=== PATIENT | male | born 1970 | race African-American/Black ===

== ENCOUNTER 2017-01-23 03:26 | Emergency (ER) | payer SELFPAY ==
[~2017-01-23] VITALS: Ht 180.3 cm; Wt 113.0 kg
[~2017-01-23 03:26] MED LIST: IBUP800T23 PO
[2017-01-23] MEDS ORDERED: HYDR-3533 PO (05:17)
[2017-01-23] MEDS ORDERED: IBUP800T23 PO (05:17)
[2017-01-23] MEDS ORDERED: AUGM875T PO (05:17)
[2017-01-23] MEDS ORDERED: AMOXICILLIN/CLAVULANATE K 875 MG TAB PO ONE (05:30)
[2017-01-23] MEDS ORDERED: ACETAMINOPHEN/HYDROcodone 325 MG/5 MG TAB PO ONE (05:30)
--- NOTE | 2017-01-23 05:44 | PD ---
HPI Chief Complaint: Bite or Sting Time Seen by Provider: 05:26 Travel History International Travel<30 days: No Contact w/Intl Traveler<30days: No Traveled to known affect area: No History of Present Illness HPI 46-year-old black male presents to emergency department for evaluation of a dog bite. The patient states that he was walking home from the bar with his when a dog in the neighborhood came through the gait in the fence. The patient states that the dog bit him in his right lower leg. He then proceeded to punch the dog in the head. He sustained lacerations to his right hand and right lower leg. The patient states that this is a known dog and neighborhood. The patient denies any numbness or tingling. He complaints of pain. No other injuries. Up-to-date with immunizations. PFSH Past Medical History Medical History: Denies Significant Hx Diminished Hearing: No Tetanus Vaccination: < 5 Years Past Surgical History Surgical History: No Previous Surgery Social History Alcohol Use: Yes (daily) Tobacco Use: Yes (occ) Substance Use: Yes (marijuana) Allergies-Medications (Allergen,Severity, Reaction): Coded Allergies: No Known Allergies (Verified , 01/23/17) Reported Meds & Prescriptions Reported Meds & Active Scripts Active Ibuprofen 800 Mg Tab 800 Mg PO Q8H PRN Lortab (Hydrocodone-Acetaminophen) 5-325 Mg Tab 1 Tab PO Q8HR PRN Augmentin (Amoxicillin-Clavulanate) 875-125 mg Tab 875 Mg PO BID not for use in CrCl <30 ml/min. Review of Systems Except as stated in HPI: all other systems reviewed are Neg Physical Exam Narrative GENERAL: Well-developed, well-nourished in no apparent distress. Nontoxic appearing. HEAD: Normocephalic, atraumatic. EYES: Pupils equal round and reactive. Extraocular motions intact. No scleral icterus. No injection or drainage. ENT: Nose clear. Throat without erythema, tonsillar hypertrophy or exudate. Uvula midline. Airway patent. NECK: Trachea midline. Supple, nontender, moves head freely. No central bony tenderness or spasm. CARDIOVASCULAR: Regular rate and rhythm without murmurs, gallops, or rubs. RESPIRATORY: Clear to auscultation. Breath sounds equal bilaterally. No wheezes , rales, or rhonchi. GASTROINTESTINAL: Abdomen soft, non-tender, nondistended. No hepato-splenomegaly , or palpable masses. No guarding. EXTREMITIES: No clubbing, cyanosis, or edema. No joint tenderness. BACK: Nontender without deformity. No flank tenderness. NEUROLOGICAL: Awake, alert and oriented x 3 .Cranial nerves grossly intact. Motor and sensory grossly within normal limits. Normal speech. Skin: Examination the right hand reveals a laceration of the thenar eminence measuring 2.5 cm. This is more superficial. There is also a puncture wound just lateral to it. There is no obvious deep injury. Patient is neurovascularly intact. Sutures are not indicated. The patient has a 7 cm laceration to his right lower leg lateral aspect. Wound goes into the subcutaneous tissues but no foreign body or deep structure injury. Neurovascular intact. Lastly there is a caring flap laceration measuring 2.5 cm to the posterior mid calf. This goes just into subcutaneous tissues. No foreign body or deep injury. Data Data Orders Amoxicil-Clavulanate (Augmentin) (01/23/17 05:30) Acetamin-Hydrocod 325-5 Mg ([place] 5-325 (01/23/17 05:30) MDM Medical Decision Making Medical Screen Exam Complete: Yes Emergency Medical Condition: Yes Medical Record Reviewed: Yes Differential Diagnosis MDM: High Differential diagnoses: Fracture, sprain, strain, dislocation, contusion, neurovascular injury, dog bite Narrative Course Patient's given Augmentin 875 and Lortab 5 mg by mouth. Patient's wounds are copiously cleansed and closed loosely. This is a dog bite right hand, right leg Procedures Procedure Narrative LACERATION LOCATION: Right posterior calf LENGTH: 2.5 cm NUMBER OF STITCHES/MIAH: 1 REPAIR: The area of the laceration was prepped with Betadine and sterilely draped. The laceration was infiltrated with 1% lidocaine with epinephrine. The wound was copiously irrigated and explored without evidence of foreign body , tendon injury or neurovascular injury. The wound was closed loosely using 3- 0 nylon. This was a simple single layer repair. A sterile dressing was applied. The patient was advised to keep the dressing clean and dry. Patient tolerated the procedure well. LACERATION LOCATION: Right lateral calf LENGTH: 7 cm NUMBER OF STITCHES/MIAH: 5 REPAIR: The area of the laceration was prepped with Betadine and sterilely draped. The laceration was infiltrated with 1% lidocaine with epinephrine. The wound was copiously irrigated and explored without evidence of foreign body , tendon injury or neurovascular injury. The wound was closed loosely using 3- 0 nylon. This was a simple single layer repair. A sterile dressing was applied. The patient was advised to keep the dressing clean and dry. Patient tolerated the procedure well. Diagnosis Primary Impression: Dog bite of right hand Additional Impression: Dog bite of right lower leg Patient Instructions: Narcotic given in the ED, General Instructions Departure Forms: Tests/Procedures, Work Release Special Instructions: No work 3 days. Additional Instructions: Rest. Elevation. Medications as directed.. Daily wound care with soap, water, Neosporin. Sutures out in 10-12 days. Recheck in the next 2-3 days. Return to the ER if any problems. Med/Other Pt SpecificInfo: Prescription(s) given, Wound Care Scripts Ibuprofen 800 Mg Ops809 Mg PO Q8H PRN (Pain/Inflammation) #30 TAB Prov:Sohail Henderson MD 01/23/17 Hydrocodone-Acetaminophen (Lortab)5-325 Mg Tab1 Tab PO Q8HR PRN (PAIN) #12 TAB Prov:Sohail Henderson MD 01/23/17 Amoxicillin-Clavulanate (Augmentin)875-125 mg Ocv818 Mg PO BID #14 TAB not for use in CrCl <30 ml/min. Prov:Sohail Henderson MD 01/23/17 Disposition: 01 DISCHARGE HOME Condition: Stable Ayan Cam Jan 23, 2017 05:44
== END 2017-01-23 05:50 | disposition home or self-care (01) ==
LOC: NEPB 03:26
DX: S81.851A Open bite, right lower leg, initial encounter (principal); S61.451A Open bite of right hand, initial encounter; W54.0XXA Bitten by dog, initial encounter; Y93.01 Activity, walking, marching and hiking
CPT/HCPCS: 12004

== ENCOUNTER 2017-01-25 23:27 | Emergency (ER) | payer SELFPAY ==
[~2017-01-25] VITALS: Ht 180.3 cm; Wt 111.0 kg
[~2017-01-25 23:27] MED LIST changes: +AUGM875T PO; +HYDR-3533 PO
[2017-01-25 23:29] VITALS: BP 127/70; PULSE 69; RESP 16; TEMP 98; O2SAT 99
--- NOTE | 2017-01-25 23:53 | PD ---
HPI Chief Complaint: Bite or Sting Time Seen by Provider: 23:51 Travel History International Travel<30 days: No Contact w/Intl Traveler<30days: No Traveled to known affect area: No History of Present Illness HPI 46-year-old black male returns for a three-day recheck. He was bitten by a dog in his right hand and right lower leg. He states that he is feeling better. No drainage. Pain is mild. He's been following our instructions taking his medications as directed. PFSH Past Medical History Medical History: Denies Significant Hx Diminished Hearing: No Tetanus Vaccination: < 5 Years Past Surgical History Surgical History: No Previous Surgery Social History Alcohol Use: Yes (daily) Tobacco Use: Yes (occ) Substance Use: Yes (marijuana) Allergies-Medications (Allergen,Severity, Reaction): Coded Allergies: No Known Allergies (Verified , 01/23/17) Reported Meds & Prescriptions Reported Meds & Active Scripts Active Ibuprofen 800 Mg Tab 800 Mg PO Q8H PRN Lortab (Hydrocodone-Acetaminophen) 5-325 Mg Tab 1 Tab PO Q8HR PRN Augmentin (Amoxicillin-Clavulanate) 875-125 mg Tab 875 Mg PO BID not for use in CrCl <30 ml/min. Review of Systems Except as stated in HPI: all other systems reviewed are Neg Physical Exam Narrative GENERAL: This is a well-nourished, well-developed patient, in no apparent distress. SKIN: No rashes, ecchymoses or lesions. Warm and dry. Patient has healing dog bites to the right hand and right lower leg. Sutures intact. No purulent drainage. Mild tenderness. No erythema. HEAD: Atraumatic. Normocephalic. EYES: PERRL, EOMI, no discharge or injection. No scleral icterus. EARS: Clear NOSE: Nasal turbinates appear normal. THROAT: Mucosa pink and moist. Airway patent. NECK: Trachea midline. supple, moves head freely. LUNGS: Clear to auscultation. CV: Regular in rhythm. ABDOMEN: Soft nontender. EXT: No clubbing cyanosis or edema. Data Data Last Documented VS Vital Signs Date Time Temp Pulse Resp B/P Pulse Ox O2 Delivery O2 Flow Rate FiO2 01/25/17 23:29 98.0 69 16 127/70 99 MDM Medical Decision Making Medical Screen Exam Complete: Yes Emergency Medical Condition: Yes Medical Record Reviewed: Yes Differential Diagnosis MDM: High Differential diagnoses: Fracture, sprain, strain, dislocation, contusion, neurovascular injury Narrative Course Patient has healing dog bites to right hand and right lower leg. Are cleansed and redressed. The patient states that he cannot return to work until Tuesday. 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 He is requested a week off from work. Diagnosis Primary Impression: healing dog bites Patient Instructions: General Instructions Departure Forms: Tests/Procedures, Work Release Special Instructions: No work 1 week. Additional Instructions: Rest. Elevation. Continue local wound care with soap, water, Neosporin. Sutures out in 12 days total. Return to the ER sooner if any problems. Med/Other Pt SpecificInfo: Wound Care Disposition: 01 DISCHARGE HOME Condition: Stable Ayan Cam Jan 25, 2017 23:53
== END 2017-01-26 00:22 | disposition home or self-care (01) ==
LOC: NEPB 23:27
DX: S81.851D Open bite, right lower leg, subsequent encounter (principal); S61.451D Open bite of right hand, subsequent encounter; W54.0XXD Bitten by dog, subsequent encounter; Y93.01 Activity, walking, marching and hiking
CPT/HCPCS: 99281

== ENCOUNTER 2017-02-07 00:02 | Emergency (ER) | payer SELFPAY ==
[~2017-02-07] VITALS: Ht 180.3 cm; Wt 109.0 kg
[2017-02-07 00:05] VITALS: BP 130/63; PULSE 84; RESP 16; TEMP 98.3; O2SAT 100
--- NOTE | 2017-02-07 00:29 | PD ---
HPI Chief Complaint: Wound/Suture/Staple Re-Check Time Seen by Provider: 00:25 Travel History International Travel<30 days: No Contact w/Intl Traveler<30days: No Traveled to known affect area: No History of Present Illness HPI 46-year-old black male presents to emergency department for a suture removal of his right lower leg dog bite. The patient's sutures have been in place now for approximately 12 days. The wound has a scant amount of clear drainage but patient denies any significant tenderness, warmth or redness. No fever or chills. PFSH Past Medical History Medical History: Denies Significant Hx Diminished Hearing: No Tetanus Vaccination: < 5 Years Social History Alcohol Use: Yes (daily) Tobacco Use: Yes (occ) Substance Use: Yes (marijuana) Allergies-Medications (Allergen,Severity, Reaction): Coded Allergies: No Known Allergies (Verified , 02/07/17) Reported Meds & Prescriptions Reported Meds & Active Scripts Active No Active Prescriptions or Reported Medications Review of Systems Except as stated in HPI: all other systems reviewed are Neg Physical Exam Narrative GENERAL: This is a well-nourished, well-developed patient, in no apparent distress. SKIN: Augmentin the right hand is well-healed. The right lower leg larger laceration has not yet healed sufficiently to remove sutures. There is a scant amount of clear serous drainage from the posterior aspect of the laceration. There is no fluctuance or pointing. There is no erythema or warmth. The laceration posteriorly appears to be healing well and sutures may be removed. HEAD: Atraumatic. Normocephalic. EYES: PERRL, EOMI, no discharge or injection. No scleral icterus. EARS: Clear NOSE: Nasal turbinates appear normal. THROAT: Mucosa pink and moist. Airway patent. NECK: Trachea midline. supple, moves head freely. LUNGS: Clear to auscultation. CV: Regular in rhythm. ABDOMEN: Soft nontender. EXT: No clubbing cyanosis or edema. Data Data Last Documented VS Vital Signs Date Time Temp Pulse Resp B/P Pulse Ox O2 Delivery O2 Flow Rate FiO2 02/07/17 00:05 98.3 84 16 130/63 100 Room Air MDM Medical Decision Making Medical Screen Exam Complete: Yes Emergency Medical Condition: Yes Medical Record Reviewed: Yes Differential Diagnosis Differential diagnosis: Healing laceration, suture removal, wound infection Narrative Course The laceration to the lateral aspect of the lower right leg appears to be healing but is not ready to have his sutures removed at this time. The laceration to the posterior aspect of the calf has had the sutures removed. Diagnosis Primary Impression: recheck dog bite Patient Instructions: General Instructions Additional Instructions: Rest. Continue local wound care with soap and water and let the wound dry. Return in 5 more days for suture removal. Monitor drainage. If there is any purulence come in and be reevaluated immediately. Med/Other Pt SpecificInfo: Wound Care Scripts No Active Prescriptions or Reported Meds Disposition: 01 DISCHARGE HOME Condition: Stable Ayan Cam Feb 07, 2017 00:29
== END 2017-02-07 00:45 | disposition home or self-care (01) ==
LOC: NEPB 00:02
DX: S81.851D Open bite, right lower leg, subsequent encounter (principal); W54.0XXA Bitten by dog, initial encounter
CPT/HCPCS: 99281

== ENCOUNTER 2017-02-13 23:39 | Emergency (ER) | payer SELFPAY ==
[2017-02-13 23:42] VITALS: BP 114/56; PULSE 69; RESP 16; TEMP 98; O2SAT 98
--- NOTE | 2017-02-13 23:51 | PD ---
HPI Chief Complaint: Laceration/Skin Injury Time Seen by Provider: 23:50 Travel History International Travel<30 days: No Contact w/Intl Traveler<30days: No Traveled to known affect area: No History of Present Illness HPI Patient comes in for suture removal right lower extremity. Sutures are placed 21 days ago secondary to a dog bite. Patient denies any complaints or concerns with the sutures. As been keeping the area dry and clean as possible using soap and water as well as placing Neosporin. Patient reports he took all antibiotics as prescribed. Denies any fevers, pain, or other concerns. [facility] Past Medical History Diminished Hearing: No Social History Alcohol Use: Yes (daily) Tobacco Use: Yes (occ) Substance Use: Yes (marijuana) Allergies-Medications (Allergen,Severity, Reaction): Coded Allergies: No Known Allergies (Verified , 02/13/17) Reported Meds & Prescriptions Reported Meds & Active Scripts Active No Active Prescriptions or Reported Medications Review of Systems Except as stated in HPI: all other systems reviewed are Neg Physical Exam Narrative GENERAL: Well-developed, overly nourished, in no acute distress, and non-ill appearing. SKIN: Warm and dry. Well healing wound noted right lateral calf. There are [address] They are dry clean intact. Wound is afebrile, nonerythematous, nontender, and without crepitus or drainage. There is no signs of infection. HEAD: Atraumatic. Normocephalic. EYES: Pupils equal and round. EOMI. No scleral icterus. No injection or drainage. ENT: No nasal bleeding or discharge. Mucous membranes pink and moist. NECK: Trachea midline. Supple. No nuclear rigidity. RESPIRATORY: No accessory muscle use. No respiratory distress. MUSCULOSKELETAL: No obvious deformities. No clubbing. No cyanosis. No edema. Full range of motion. NEUROLOGICAL: Awake and alert. No obvious cranial nerve deficits. Motor grossly within normal limits. Normal speech. PSYCHIATRIC: Appropriate mood and affect; insight and judgment normal. Data Data Last Documented VS Vital Signs Date Time Temp Pulse Resp B/P Pulse Ox O2 Delivery O2 Flow Rate FiO2 02/13/17 23:42 98.0 69 16 114/56 98 Room Air MDM Medical Decision Making Medical Screen Exam Complete: Yes Emergency Medical Condition: No Differential Diagnosis Wound check, suture removal, wound infection, other Narrative Course Patient in no obvious distress upon re-evaluation. Any questions/concerns in reference to patient diagnosis/condition discussed and clarified prior to patient's discharge.Follow up with patient's primary physician or primary care clinic as needed. Instructed patient to return to ED immediately, if symptoms return/worsen. Pt showed understanding of above instructions. Further instructions and recommendations were detailed in discharge paperwork. Pt ambulated without difficulty out of ED at discharge. Procedures Procedure Narrative Verbal consent was obtained. 6 sutures were easily removed from right calf. There is no complications. Patient tolerated procedure well. Diagnosis Primary Impression: Encounter for removal of sutures Patient Instructions: General Instructions, Stitches Removal (DC) Additional Instructions: Follow-up with your primary care physician as needed. Keep wound dry and clean as possible using soap and water. Use Neosporin to promote healing. Return to the emergency department if symptoms get worse. Scripts No Active Prescriptions or Reported Meds Disposition: 01 DISCHARGE HOME Condition: Stable Isaak Oakes Feb 13, 2017 23:51
== END 2017-02-14 00:01 | disposition home or self-care (01) ==
LOC: NEPB 23:39
DX: S81.851D Open bite, right lower leg, subsequent encounter (principal); W54.0XXD Bitten by dog, subsequent encounter; Z48.02 Encounter for removal of sutures
CPT/HCPCS: 99281